=== PATIENT | female | born 1985 | race Caucasian/White ===

== ENCOUNTER 2018-11-29 11:06 | Emergency (ER) | payer BC, MEDICAID ==
[~2018-11-29] VITALS: Ht 152.4 cm; Wt 104.3 kg
[2018-11-29 11:24] VITALS: BP_SYST 119
--- NOTE | 2018-11-29 11:38 | NUR ---
Patient to ER bed 07 to gown for evaluation. Side rails up.
--- NOTE | 2018-11-29 11:40 | NUR ---
Pt brought by family member, A&Ox4, pt presents to ER with epigastric pain and one episode of mild vaginal spotting, pt afebrile, skin pink and warm, cap refill <3, VS WNL, respirations even and unlabored, cap refill <3.
--- NOTE | 2018-11-29 11:42 | NUR ---
Dr Smith at bedside examining patient
[2018-11-29 13:09] VITALS: BP_SYST 118
--- NOTE | 2018-11-29 13:10 | NUR ---
Patient given written and verbal discharge instructions and verbalizes understanding. ER MD discussed with patient the results and treatment provided. Patient in stable condition. ID arm band removed. Rx of Motrin given. Patient educated on pain management and to follow up with PMD. Pain Scale 2/10 tolerable for patient. Opportunity for questions provided and answered. Medication side effect fact sheet provided.
== END 2018-11-29 13:10 | disposition home or self-care (01) ==
LOC: SED 11:06
DX: N93.8 Other specified abnormal uterine and vaginal bleeding (principal); Z88.5 Allergy status to narcotic agent
CPT/HCPCS: 74021; 81002; 81025; 99283

== ENCOUNTER 2023-01-29 10:29 | Emergency (ER) | payer MEDICAID ==
[~2023-01-29] VITALS: Ht 152.4 cm; Wt 97.5 kg
--- NOTE | 2023-01-29 10:45 | NUR ---
ER at bedside but patient states on the phone with cardiology manager and could not speak with Dr. Garcia.
[2023-01-29 10:49] VITALS: BP_SYST 110
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
--- NOTE | 2023-01-29 11:34 | NUR ---
second attempt at exam, patient on phone.
--- NOTE | 2023-01-29 12:00 | NUR ---
ER Dr. Garcia at bedside examining patient.
[2023-01-29] MEDS ORDERED: ONDANSETRON 4 MG ODT TAB PO ONE (12:15)
[2023-01-29] MEDS ORDERED: MORPHINE 4 MG INJ. 4 MG/ML VIAL IM ONE (12:15)
--- NOTE | 2023-01-29 12:15 | NUR ---
Patient given 4mg of morphine IM to right ventral gluteal muscle. Patient given zofran odt po on tongue advised not to chew or swallow. Patient denied allergies, requested removal of [place], and states has had Morphine before never had a bad reaction to it. Patient approved of medications prior to administration. Patient tolerated injection well.
[2023-01-29 13:33] VITALS: BP_SYST 118
== END 2023-01-29 13:57 | disposition home or self-care (01) ==
LOC: SED 10:29
DX: M25.461 Effusion, right knee (principal); M79.662 Pain in left lower leg; Z79.899 Other long term (current) drug therapy; W01.0XXA Fall on same level from slipping, tripping and stumbling without subsequent striking against object, initial encounter; Y93.89 Activity, other specified; Y92.89 Other specified places as the place of occurrence of the external cause; Y99.8 Other external cause status
CPT/HCPCS: 99284; 73564; 73590; 96372; Q0162; J2270

== ENCOUNTER 2023-08-22 14:13 | Emergency (ER) | payer MEDICAID ==
[~2023-08-22] VITALS: Ht 152.4 cm; Wt 74.4 kg
[2023-08-22] MEDS ORDERED: KETOROLAC TROMETHAMINE 30 MG VIAL IM ONE (14:15)
[2023-08-22 14:18] VITALS: BP_SYST 126; PULSE 93; RESP 20; TEMP 98.3; O2SAT 98
[2023-08-22] MEDS ORDERED: traMADol HCL HCL 50 MG TABLET (ULTRAM) PO ONE (14:30)
[2023-08-22 16:11] VITALS: BP_SYST 126; PULSE 93; RESP 20; TEMP 98.3; O2SAT 98
== END 2023-08-22 15:00 | disposition left against medical advice (07) ==
LOC: SED 14:13
DX: M79.662 Pain in left lower leg (principal); F15.10 Other stimulant abuse, uncomplicated; Z79.899 Other long term (current) drug therapy
CPT/HCPCS: 73502; 73552; 73564; 99284

== ENCOUNTER 2024-02-24 18:32 | Emergency (ER) | payer MEDICAID ==
[~2024-02-24] VITALS: Ht 152.4 cm; Wt 69.9 kg
[2024-02-24 18:32] VITALS: BP_SYST 124; PULSE 80; RESP 18; TEMP 97.5; O2SAT 98
[2024-02-24 18:42] VITALS: BP_SYST 124; PULSE 80; RESP 18; TEMP 97.5; O2SAT 98
[2024-02-24] MEDS: IBUPROFEN 600 MG TABLET PO ONE (18:46)
== END 2024-02-24 18:50 ==
LOC: SED 18:32
DX: S00.83XA Contusion of other part of head, initial encounter (principal); I10 Essential (primary) hypertension; Z79.899 Other long term (current) drug therapy; W22.8XXA Striking against or struck by other objects, initial encounter; Y93.89 Activity, other specified; Y92.89 Other specified places as the place of occurrence of the external cause; Y99.8 Other external cause status
CPT/HCPCS: 99283